=== PATIENT | male | born 1995 | race Asian ===

== ENCOUNTER 2022-10-24 07:07 | Outpatient (CLI) | payer MEDICAID ==
[~2022-10-24] VITALS: Ht 162.6 cm; Wt 68.0 kg
[2022-10-24] MEDS ORDERED: albuterol 2.5 MG/3 ML nebule NEB PRN (07:45)
== END 2022-10-24 23:59 | disposition home or self-care (01) ==
LOC: RT 07:07
PROVIDERS: ATTEND Nurse Practitioner Family
DX: R06.02 Shortness of breath (principal); U09.9 Post COVID-19 condition, unspecified
CPT/HCPCS: 94060; 94760